=== PATIENT | female | born 1965 | race Caucasian/White ===

== ENCOUNTER 2017-04-01 18:00 | Emergency (ER) | payer BC ==
[2017-04-01 18:43] VITALS: BP 138/77
--- NOTE | 2017-04-01 19:22 | UC ---
Ear Complaint HPI - HPI Summary HPI Summary: 51 YEAR OLD FEMALE PRESENTS WITH RIGHT EAR PAIN AND SORE THROAT. - History of Current Complaint Chief Complaint: UCEar Stated Complaint: EAR PAIN/COUGH Time Seen by Provider: 04/01/17 19:21 Hx Obtained From: Patient Onset/Duration: Sudden Onset Severity Initially: Moderate Severity Currently: Moderate Pain Scale Used: 0-10 Numeric - 5 - Allergies/Home Medications Allergies/Adverse Reactions: Allergies Allergy/AdvReac Type Severity Reaction Status Date / Time Amoxicillin Allergy Hives Verified 04/01/17 18:40 PMH/Surg Hx/FS Hx/Imm Hx Previously Healthy: Yes - Surgical History Surgical History: Yes Surgery Procedure, Year, and Place: - Social History Alcohol Use: Occasionally Substance Use Type: None Smoking Status (MU): Former Smoker - Immunization History Most Recent Influenza Vaccination: no Review of Systems Constitutional: Negative Skin: Negative Eyes: Negative ENT: Sore Throat, Ear Ache, Nasal Discharge, Sinus Congestion, Sinus Pain/ Tenderness Respiratory: Negative Cardiovascular: Negative Gastrointestinal: Negative Genitourinary: Negative Motor: Negative Neurovascular: Negative Musculoskeletal: Negative Neurological: Negative Psychological: Negative All Other Systems Reviewed And Are Negative: Yes Physical Exam Triage Information Reviewed: Yes Appearance: Well-Appearing Vital Signs: Initial Vital Signs Temp 36.6 C 04/01/17 18:40 Pulse 66 04/01/17 18:40 Resp 16 04/01/17 18:40 BP 138/77 04/01/17 18:40 Pulse Ox 100 04/01/17 18:40 Vital Signs Reviewed: Yes Eye Exam: Normal ENT: Positive: Nasal congestion, Nasal drainage, Other - RIGHT EAR PAIN Dental Exam: Normal Neck exam: Normal Neck: Positive: 1 Respiratory Exam: Normal Cardiovascular Exam: Normal Abdominal Exam: Normal Musculoskeletal Exam: Normal Neurological Exam: Normal Psychological Exam: Normal Skin Exam: Normal Ear Complaint Course/Dx - Differential Dx/Diagnosis Provider Diagnoses: RIGHT OTITIS EXTERNA. PHARYNGITIS Discharge - Discharge Plan Condition: Stable Disposition: HOME Prescriptions: Azithromyxin JOSE MANUEL (NF) [Z-Jose Manuel (Zithromax) 250 mg tabs #6] 2 tab PO .TODAY, THEN 1 DAILY #6 tab Guaifenesin-Codeine [Cheratussin AC] 1 teasp PO Q8H PRN #120 ml MDD 15 ml PRN Reason: Cough Magic M W2 Ivan/Maal/Nyst/Lido* 5 ml SWISH SPIT QID PRN #120 ml PRN Reason: Pain Neomyc/Polym/HC 1% OTIC SUSP* [Cortisporin Otic Susp 1%*] 4 drop RIGHT EAR QID # 1 btl Patient Education Materials: Pharyngitis (ED), Otitis Externa (ED) Referrals: [facility] [Primary Care Provider] -
== END 2017-04-01 19:36 | disposition home or self-care (01) ==
LOC: UCCORT 18:00
DX: H60.91 Unspecified otitis externa, right ear (principal); J02.9 Acute pharyngitis, unspecified; Z88.1 Allergy status to other antibiotic agents; Z87.891 Personal history of nicotine dependence
CPT/HCPCS: 99202; G0463

== ENCOUNTER 2019-06-26 12:28 | Emergency (ER) | payer BC ==
[2019-06-26 14:18] VITALS: BP 133/88
--- NOTE | 2019-06-26 14:37 | UC ---
Throat Pain/Nasal Feliberto HPI - HPI Summary HPI Summary: 54 year old female with no PMH no medications presents with increased sinus pressure, frontal headache, dry cough x > 1 week. no fever, chills, no GI symptoms, mild throat pain. NO SOB. no recent abx. - History of Current Complaint Stated Complaint: CONGESTION Time Seen by Provider: 06/26/19 14:09 Hx Obtained From: Patient Hx Last Menstrual Period: 06/16/19 ?: No Onset/Duration: Sudden Onset, Lasting Weeks - 1 Severity: Mild Pain Intensity: 0 Pain Scale Used: 0-10 Numeric Cough: Nonproductive Associated Signs & Symptoms: Positive: Sinus Discomfort. Negative: Fever, Vomiting - Allergies/Home Medications Allergies/Adverse Reactions: Allergies Allergy/AdvReac Type Severity Reaction Status Date / Time amoxicillin Allergy Unknown Hives Verified 06/26/19 14:10 Home Medications: Home Medications Cetirizine HCl/Pseudoephedrine [Zyrtec-D Tablet] 1 each PO PRN 06/26/19 [History ] Ibuprofen TAB* [Advil TAB*] 200 mg PO Q6H PRN 06/26/19 [History Confirmed ] Sulfamethox/Trimethoprim DS* [Bactrim DS 800/160 TAB*] 1 tab PO BID #20 tab [Rx] PMH/Surg Hx/FS Hx/Imm Hx Previously Healthy: Yes - Surgical History Surgical History: Yes Surgery Procedure, Year, and Place: - Family History Known Family History: Positive: Non-Contributory - Social History Occupation: Employed Full-time Alcohol Use: Occasionally Substance Use Type: None Smoking Status (MU): Former Smoker Have You Smoked in the Last Year: No - Immunization History Most Recent Influenza Vaccination: no Review of Systems All Other Systems Reviewed And Are Negative: Yes Constitutional: Positive: Fatigue ENT: Positive: Sore Throat, Ear Ache, Sinus Congestion, Sinus Pain/Tenderness Respiratory: Positive: Cough. Negative: Shortness Of Breath Cardiovascular: Positive: Negative Genitourinary: Positive: Negative Neurological/Mental Status: Positive: Headache Psychological: Positive: Negative Is Patient Immunocompromised?: No Physical Exam Triage Information Reviewed: Yes Appearance: No Pain Distress, Well-Nourished, Ill-Appearing - mild Vital Signs: Initial Vital Signs Temp 98.5 F 06/26/19 14:11 Pulse 76 06/26/19 14:11 Resp 18 06/26/19 14:11 BP 133/88 06/26/19 14:11 Pulse Ox 100 06/26/19 14:11 Vital Signs Reviewed: Yes Eye Exam: Normal Eyes: Positive: Conjunctiva Clear ENT: Positive: Pharynx normal, Nasal congestion, TMs normal, Sinus tenderness - frontal b/l, Uvula midline. Negative: TM bulging, TM dull, TM red, Tonsillar swelling, Tonsillar exudate Neck: Positive: Supple, Tenderness @ - submand, periaur b/l, Enlarged Nodes @ - minimal b/l submand. Negative: Nuchal Rigidity Respiratory: Positive: Chest non-tender, Lungs clear, Normal breath sounds, No respiratory distress, No accessory muscle use. Negative: Respiratory distress, Crackles, Rhonchi, Stridor, Wheezing Cardiovascular: Positive: RRR, No Murmur Neurological: Positive: Alert Psychological: Positive: Normal Response To Family Skin: Negative: Rashes Throat Pain/Nasal Course/Dx - Course Course Of Treatment: Sinus infection - Increase fluid intake - Antibiotics as directed - Over the counter medications as needed for pain, symptoms - Humidifier at night to help with symptoms, control cough - REturn with increased pain, headache not relieved by medications. - Differential Dx/Diagnosis Differential Diagnosis/HQI/PQRI: Sinusitis, URI Provider Diagnosis: Sinusitis Discharge ED - Sign-Out/Discharge Documenting (check all that apply): Patient Departure All imaging exams completed and their final reports reviewed: No Studies - Discharge Plan Condition: Good Disposition: HOME Prescriptions: Sulfamethox/Trimethoprim DS* [Bactrim DS 800/160 TAB*] 1 tab PO BID #20 tab Patient Education Materials: Sinusitis (ED) Referrals: Tad Barth MD [Primary Care Provider] - Additional Instructions: - Increase fluid intake - Antibiotics as directed - Over the counter medications as needed for pain, symptoms - Humidifier at night to help with symptoms, control cough - REturn with increased pain, headache not relieved by medications. - Billing Disposition and Condition Condition: GOOD Disposition: Home
== END 2019-06-26 14:45 | disposition home or self-care (01) ==
LOC: UCCORT 12:28
DX: J32.9 Chronic sinusitis, unspecified (principal); R05 Cough; Z87.891 Personal history of nicotine dependence; Z88.0 Allergy status to penicillin
CPT/HCPCS: 99212; G0463

== ENCOUNTER 2019-07-19 13:39 | Emergency (ER) | payer BC ==
[2019-07-19 14:16] VITALS: BP 169/79
--- NOTE | 2019-07-19 15:10 | UC ---
Truncal Trauma HPI - HPI Summary HPI Summary: left posterior rib pain x 4 days pain is severe 8 out 10 , worse with movement, better with rest/ Ibuprofen positive injury , s/p fall on her left flank area no cough , no sob , no fever, - History Of Current Complaint Chief Complaint: UCBackPain Stated Complaint: RIB/BACK PAIN AFTER A FALL07/16/19 Time Seen by Provider: 07/19/19 14:19 Hx Obtained From: Patient Hx Last Menstrual Period: currently Onset/Duration: Sudden Onset, Lasting Days - 4, Still Present Onset Of Pain: Immediate Severity Initially: Moderate Severity Currently: Severe Pain Intensity: 8 Mechanism Of Injury: Fall From A Standing Position Aggravating Factor(s): Movement Alleviating factor(s): Rest Associated Signs And Symptoms: Negative: SOB, Chest Pain, Cough, Hematuria, Abdominal Pain, Fever, Nausea, Vomiting - Allergies/Home Medications Allergies/Adverse Reactions: Allergies Allergy/AdvReac Type Severity Reaction Status Date / Time amoxicillin Allergy Unknown Hives Verified 07/19/19 14:16 Home Medications: Home Medications Ibuprofen TAB* [Advil TAB*] 200 mg PO Q6H PRN 06/26/19 [History Confirmed ] HYDROcodone/ACETAMIN 5-325 MG* [Durant 5-325 TAB*] 1 tab PO Q6H PRN #20 tab MDD 4 tabs per day 07/19/19 [Rx] PMH/Surg Hx/FS Hx/Imm Hx Previously Healthy: Yes - Surgical History Surgical History: Yes Surgery Procedure, Year, and Place: - Family History Known Family History: Positive: Non-Contributory - Social History Alcohol Use: Occasionally Substance Use Type: None Smoking Status (MU): Former Smoker Have You Smoked in the Last Year: No When Did the Patient Quit Smoking/Using Tobacco: 2019 - Immunization History Most Recent Influenza Vaccination: no Review of Systems All Other Systems Reviewed And Are Negative: Yes Is Patient Immunocompromised?: No Physical Exam Triage Information Reviewed: Yes Appearance: Well-Appearing, Well-Nourished, Pain Distress Vital Signs: Initial Vital Signs Temp 99.0 F 07/19/19 14:11 Pulse 77 07/19/19 14:11 Resp 16 07/19/19 14:11 BP 169/79 07/19/19 14:11 Pulse Ox 97 07/19/19 14:11 Vital Signs Reviewed: Yes Eye Exam: Normal Eyes: Positive: Conjunctiva Clear ENT: Positive: Normal ENT inspection, Hearing grossly normal, Pharynx normal Neck: Positive: Supple, Nontender, No Lymphadenopathy Respiratory: Positive: Chest non-tender, Lungs clear, Normal breath sounds, Other: - pain left posterior ribs Cardiovascular: Positive: RRR, No Murmur, Pulses Normal Abdomen Description: Positive: Nontender, Soft. Negative: CVA Tenderness (R), CVA Tenderness (L), Distended, Guarding Bowel Sounds: Positive: Present Diagnostics - Radiology No standard instances Radiology Interpretation Completed By: Radiologist Summary of Radiographic Findings: xray ribs left: IMPRESSION: 1. Minimally displaced left posterolateral eighth and ninth rib fractures with a small pleural effusion but no pneumothorax. 2. 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 Truncal Trauma Course/Dx - Differential Dx/Diagnosis Provider Diagnosis: Fracture of rib of left side Discharge ED - Sign-Out/Discharge Documenting (check all that apply): Patient Departure All imaging exams completed and their final reports reviewed: Yes - Discharge Plan Condition: Stable Disposition: HOME Prescriptions: HYDROcodone/ACETAMIN 5-325 MG* [Durant 5-325 TAB*] 1 tab PO Q6H PRN #20 tab MDD 4 tabs per day PRN Reason: Pain - Severe Patient Education Materials: Rib Fracture (ED) Referrals: Tad Barth MD [Primary Care Provider] - 7 Days - Billing Disposition and Condition Condition: STABLE Disposition: Home
== END 2019-07-19 15:09 | disposition home or self-care (01) ==
LOC: UCCORT 13:39
DX: S22.32XA Fracture of one rib, left side, initial encounter for closed fracture (principal); J90 Pleural effusion, not elsewhere classified; W18.30XA Fall on same level, unspecified, initial encounter; Y92.9 Unspecified place or not applicable; Z88.0 Allergy status to penicillin; Z87.891 Personal history of nicotine dependence
CPT/HCPCS: 99212; G0463